=== PATIENT | male | born 1950 | race Caucasian/White ===

== ENCOUNTER 2022-05-08 22:47 | Emergency (ER) | payer OTHER ==
[~2022-05-08] VITALS: Ht 182.9 cm; Wt 70.3 kg
--- NOTE | 2022-05-08 22:49 | NUR ---
PT BIBA ALS ER BED 10
[2022-05-08 22:50] VITALS: BP 128/53
--- NOTE | 2022-05-08 22:50 | NUR ---
72 Y/O MALE BIBA (ALS) FROM [facility], C/O DIFFICULTY BREATHING X2 HOURS. RT AT SNF UNABLE TO ADVANCE SUCTION FOR TRACH. TRACH CHANGED TWICE, STILL UNABLE TO SUCTION. PT HAS TRACH ATTACHED TO VENTILATOR. PT IS BED RIDDEN. DIAPERED, G-TUBE. PT IS ABLE TO RESPOND VIA EYE MOVEMENTS, BASELINE FOR PT. SKIN IS PINK/WARM/DRY. RETRACTION TO RIGHT HAND WITH EDEMA TO RIGHT ARM. HX: CVA WITH RIGHT SIDE DEFICITE, CHRONIC RESP FAILURE, PNEUMONTITIS, DYSPHAGIA, SEPSIS, UTI, METABOLIC ENCEPHALOPATHY, A-FIB, COPD, MN, DIALYSIS, ANEMIA, BIPOLA, DEPRESSION, ANXIETY, ALS UNK ALLERGIES
--- NOTE | 2022-05-08 22:56 | NUR ---
RT IS ABLE TO SUCTION PT. [id number] 99%
--- NOTE | 2022-05-08 23:10 | NUR ---
XRAY AT BEDSIDE
--- NOTE | 2022-05-09 00:10 | NUR ---
RT AT BEDSIDE SUCTIONING PT AND ADJUSTING VENT
--- NOTE | 2022-05-09 00:39 | NUR ---
at bedside assessing pt.
--- NOTE | 2022-05-09 00:50 | NUR ---
RT AT BEDSIDE WITH MD REPLACING TRACH COLLAR.
[2022-05-09] MEDS ORDERED: MORPHINE SULFATE 4 MG/ML SYR IVP ONE (02:30)
[2022-05-09 03:39] VITALS: BP 120/52
[2022-05-09 03:56] VITALS: BP 120/52
--- NOTE | 2022-05-09 03:57 | NUR ---
Patient discharged with v/s stable. Written and verbal after care instructions given and explained. Patient verbalized understanding. Ambulance Transport with to long term. All questions addressed prior to discharge. Advised to follow up with PMD. TRANSPORTED VIA [facility], ON VENT. VSS.
== END 2022-05-09 03:54 ==
LOC: MED 22:47
DX: R06.02 Shortness of breath (principal); J44.9 Chronic obstructive pulmonary disease, unspecified; I10 Essential (primary) hypertension; I25.2 Old myocardial infarction; Z86.73 Personal history of transient ischemic attack (TIA), and cerebral infarction without residual deficits
CPT/HCPCS: 71045; 96374; 99285; J2270; Q0092